=== PATIENT | male | born 1965 | race Hispanic/Latino ===

== ENCOUNTER 2022-02-13 13:17 | Outpatient (CLI) | payer BC | END 2022-02-13 13:18 | disposition home or self-care (01) | LOC: CSHCP 13:17 | PROVIDERS: ATTEND Internal Medicine | DX: G47.33 Obstructive sleep apnea (adult) (pediatric) (principal); R06.09 Other forms of dyspnea | CPT/HCPCS: 94060; 94726; 94729; 94760 ==